=== PATIENT | male | born 2000 | race Caucasian/White ===

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

== ENCOUNTER 2021-01-20 13:03 | Emergency (ER) | payer MEDICAID, SELFPAY ==
[2021-01-20 13:58] VITALS: BP 147/81; PULSE 63; RESP 19; TEMP 36.8; O2SAT 99; BMI 21.9
[2021-01-20 16:24] VITALS: BP 145/81; PULSE 66; RESP 18; TEMP 36.9; O2SAT 98
--- NOTE | 2021-01-20 16:49 | ED_ITS ---
HPI - Extremity Problem General: Chief complaint: Extremity Problem,Nontraumatic Stated complaint: L foot toe Pain, (Big Toe) Time Seen by Provider: 01/20/21 16:25 Source: patient Mode of arrival: ambulatory Limitations: no limitations History of Present Illness: HPI Narrative: Patient is a 20-year-old male here for complaints of an ingrown toenail to his left great toe. Complaint: extremity pain Onset (ago): day(s) Pain Consistency: constant Location: left and toe Relieving factors: nothing Exacerbating factors: nothing Associated symptoms: Reports no associated symptoms Review of Systems Musc: Reports: extremity pain (L great toe) PFSH ED PFSH: Social History Smoking and tobacco status: never smoked Current occupation: [employer] Physical Exam Const: COMMON NORMALS: no acute distress, average body habitus, patient oriented x3, no limitations, healthy appearing, alert and well nourished Extremity: GENERAL: Yes normal exam except as noted OTHER: mild-mod ingrown toenail to lateral aspect of L great toe; erythema/swelling noted locally but no extension into toe/foot; no drainage/odor Neuro: COMMON NORMALS: patient oriented x3 SENSORIUM/ORIENTATION: Yes alert Course Vital Signs: Vital signs: Vital Signs Temperature 98.5 F 01/20/21 16:24 Pulse Rate 66 01/20/21 16:24 Respiratory Rate 18 01/20/21 16:24 Blood Pressure 145/81 01/20/21 16:24 Pulse Oximetry 98 01/20/21 16:24 MDM - Extremity (Nontraumatic) MDM Narrative: Medical decision making narrative: Will have CM get him set up with PCP. Recommend warm epson salt soaks and will place on abx. Discharge Plan Discharge Patient Disposition: Home Clinical Impression: Ingrowing left great toenail Condition: Stable Prescriptions: New Bactrim DS 800-160 mg tablet 1 tab PO BID 7 Days Qty: 14 RF: 0 No Action triamcinolone acetonide 0.1 % ointment 1 applic TOPICAL BID 7 Days Qty: 30 RF: 0 Discharge Orders: Discharge ED (Routine); Ordered 01/20/21 Ordered By: Syeda Ureña Patient Instructions: Ingrown Nail (ED) Activity Restrictions/Additional Instructions: As we discussed do warm water/Epson salt soaks as much as possible. Fill and begin antibiotics. I have placed information with case management to try to get you set up with a primary care provider. Coding Level of Care Code ED Incident Response Coordinator for Emeterio Levy
--- NOTE | 2021-01-21 08:45 | DCPLANNER ---
district manager primary care sales had message to speak with patient about getting established with a primary care physician. district manager primary care sales called phone number [phone], unable to speak with patient at this time, a voicemail was left for patient to return case assistant phone call.
== END 2021-01-20 17:01 | disposition home or self-care (01) ==
PROVIDERS: Emergency Provider Physician Assistant
DX: L60.0 Ingrowing nail (principal)
CPT/HCPCS: 99281

== ENCOUNTER → 2021-03-14 16:35 | Outpatient (BNVA) | payer MEDICAID, SELFPAY | PROVIDERS: Visit Provider Nurse Practitioner | DX: Z20.822 Contact with and (suspected) exposure to COVID-19 (principal) | CPT/HCPCS: 87426 ==

== ENCOUNTER → 2021-05-21 14:48 | Outpatient (BNVA) | payer MEDICAID, SELFPAY | PROVIDERS: Visit Provider Registered Nurse Neonatal Intensive Care | DX: S69.91XA Unspecified injury of right wrist, hand and finger(s), initial encounter (principal); X58.XXXA Exposure to other specified factors, initial encounter | CPT/HCPCS: 73110; 73130 ==

== ENCOUNTER 2021-05-26 17:32 | Emergency (ER) | payer MEDICAID, SELFPAY ==
[2021-05-26 17:38] VITALS: BP 130/79; PULSE 64; RESP 16; TEMP 36.8; O2SAT 100
--- NOTE | 2021-05-26 18:05 | ECG_ITS ---
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 Requested By: Kristian Adames Order Number: [id number] Melania MD: RUBA CARVAJAL Measurements Intervals [place] Rate: 59 P: 75 CT: 128 QRS: 81 QRSD: 90 T: 61 QT: 420 QTc: 417 Interpretive Statements SINUS BRADYCARDIA MINIMAL VOLTAGE CRITERIA FOR LVH, CONSIDER NORMAL VARIANT [MEETS CRITERIA IN ONE OF: R(aVL), S(V1), R(V5), R(V5/V6)+S(V1)] EARLY REPOLARIZATION [ST ELEVATION WITH NORMALLY INFLECTED T-WAVE] Compared to ECG 10/30/2019 23:11:28 Early repolarization now present ST (T wave) deviation no longer present Electronically Signed On 05-27-2021 20:12:33 SUPERVISOR COFFEE by RUBA CARVAJAL [email or web address]
--- NOTE | 2021-05-26 19:59 | CTR_ITS ---
PROCEDURE INFORMATION: Exam: CT Cervical Spine Without Contrast Exam date and time: 05/26/2021 7:59 PM Age: 21 years old Clinical indication: Injury or trauma; Blunt trauma; Injury details: Fall- hit head on wall. Denies loc. DURAN and pain in neck. C-collar in place TECHNIQUE: Imaging protocol: Computed tomography images of the cervical spine without contrast. Total images: 336 Radiation optimization: All CT scans at this facility use at least one of these dose optimization techniques: automated exposure control; mA and/or kV adjustment per patient size (includes targeted exams where dose is matched to clinical indication); or iterative reconstruction. COMPARISON: CT head wo con* [id number] 05/26/2021 8:19 PM RADIATION DOSE METRICS: Total DLP (mGy-cm): 453.43 FINDINGS: Bones/joints: No acute fracture. Normal alignment. Limbus vertebra C6 a normal anatomical variant. Discs/Spinal canal/Neural foramina: Intervertebral disc space heights preserved throughout. No significant disc protrusion. No severe spinal canal stenosis. No significant neural foraminal narrowing. Lungs: Lung apices are normal. Soft tissues: Unremarkable. CT/CT cervical spin wo con* [id number] IMPRESSION: No acute findings.
--- NOTE | 2021-05-26 19:59 | ED_ITS ---
HPI - Syncope General: Chief Complaint: Syncope Stated Complaint: NEAR SYNCOPE Time Seen by Provider: 05/26/21 19:59 History of Present Illness: HPI narrative: 21-year-old male patient comes in today with complaints of feeling lightheaded then losing control and balance and falling back and hitting his neck and head against the wall. Patient reports episode of nausea and vomiting after incident before recovery. Patient does report some pain to the back of his head and neck. Patient was evaluated by EMS and brought in with c-collar. Patient has had previous episodes of fainting/syncope over the last 2 years. Patient reports 1 in July 2019 in which he was seen in [place] emergency department and was cleared with no obvious abnormality. Patient then was seen in this ER in October 2019 for a similar episode. Review of the record indicated no significant abnormalities with lab, CT, or EKG. Patient reports last week he became faint at work but did not pass out completely. Patient appears well. Patient appears no acute distress. Patient denies any routine medication use. Patient denies any drug use or alcohol use Review of Systems General: Reports: 10 or more systems reviewed and unremarkable except in HPI and below Card: Reports: syncope [facility] ED PFSH: Social History Smoking and tobacco status: never smoked Current occupation: [employer] Physical Exam Const: COMMON NORMALS: no acute distress and patient oriented x3 GENERAL APPEARANCE: cooperative HENMT: COMMON NORMALS: normocephalic, TM's normal bilaterally and Normal external nose present HEAD & SCALP: normal to inspection and normocephalic NOSE: Normal external nose present TYMPANIC MEMBRANE: TM's normal bilaterally MOUTH: Normal oral and palatal mucosa present THROAT: posterior oropharynx normal Eye: GENERAL EYE: appearance normal, both eyes and all related structures Neck/C-Spine: COMMON NORMALS: full ROM Lymph: LYMPHATIC: no lymphadenopathy noted Chest: COMMONS NORMALS: normal inspection of the chest Resp: COMMON NORMALS: normal respiratory effort EFFORT & INSPECTION: Yes able to speak in complete sentences Cardio: COMMON NORMALS: regular rate and regular rhythm RATE: regular rate RHYTHM: regular rhythm GI: COMMON NORMALS: non-tender Back/Pelvis: COMMON NORMALS: thoracic and lumbar spine normal to inspection Extremity: COMMON NORMALS: normal to inspection Neuro: COMMON NORMALS: patient oriented x3 and moves all extremities Psych: COMMON NORMALS: mental status grossly normal and cooperative Skin: COMMON NORMALS: no rashes or lesions noted GENERAL SKIN EXAM: no rashes or lesions noted Course Vital Signs: Vital signs: Vital Signs Temperature 98.2 F 05/26/21 17:38 Pulse Rate 64 05/26/21 17:38 Respiratory Rate 16 05/26/21 17:38 Blood Pressure 130/79 05/26/21 17:38 Pulse Oximetry 100 05/26/21 17:38 MDM - Syncope MDM Narrative: Medical decision making narrative: 21-year-old male patient comes in today with complaints of passing out and hitting the back of his head against the wall. Patient reports that he has had 3 other episodes of syncope for the last 2 years. On exam patient appears well. Patient appears no acute distress. Lungs are clear to auscultation. Skin is warm and dry. Patient had full recovery on arrival to the ER. Differential diagnosis includes but not limited to vasovagal syncope, psychogenic syncope, hypotension. Laboratory values were unremarkable. CT of the head and neck were performed due to patient's injury when he hit the back of his head against the wall. No sign of injury or abnormality was noted. EKG showed sinus bradycardia. Reviewed exam with patient with recommendations for follow-up with primary care for further evaluation and treatment. No suspicion for serious illness was noted at this time. Case management will be consulted for PCP follow-up. Patient agreed to plan. Lab Data: Labs: Lab Results 05/26/21 05/26/21 20:40 20:40 WBC 6.4 10^3/uL 10^3/ uL (4.5-13.0) RBC 4.66 10^6/uL 10^6 /uL (4.1-5.3) Hgb 14.0 g/dL g/dL (11.7-16.6) Hct 40.6 % L % (42.0-52.0) MCV 87.1 fl fl (80-94) MCH 30.0 pg pg (28.0-34.0) MCHC 34.5 g/dL g/dL (30.0-36.0) RDW 11.8 % L % (12.1-15.1) Plt Count 197 10^3/cmm 10^3 /cmm (130-400) MPV 9.2 fL fL (7.4-10.4) Neut % (Auto) 75.7 % % Lymph % (Auto) 16.7 % % [place] % (Auto) 6.4 % % Eos % (Auto) 0.6 % % Baso % (Auto) 0.3 % % Neut # (Auto) 4.83 10^3/uL 10^3 /uL (1.8-8.0) Lymph # (Auto) 1.1 10^3/uL L 10^ 3/uL (1.5-6.5) [place] # (Auto) 0.4 10^3/uL 10^3/ uL (0.2-0.9) Eos # (Auto) 0.0 10^3/uL 10^3/ uL (0.0-0.8) Baso # (Auto) 0.0 10^3/uL 10^3/ uL (0.0-0.1) Nucleated RBC % (a uto) 0 % % Nucleated RBCs # 0.0 /100WBC /100W BC Sodium 139 mmol/L mmol/L (136-145) Potassium 4.4 mmol/L mmol/L (3.5-5.1) Chloride 104 mmol/L mmol/L (98-107) Carbon Dioxide 23 mmol/L mmol/L (22-29) Anion Gap 16.4 (5-19) BUN 11 mg/dL mg/dL (6-20) Creatinine 0.7 mg/dL mg/dL (0.7-1.2) GFR Calculation 143.8 mL/min H mL /min (90-130) Glucose 84 mg/dL mg/dL (65-115) Calculated Osmolal ity 287 mOsm/kg mOsm/ kg (285-295) Calcium 9.0 mg/dL mg/dL (8.5-10.5) Discharge Plan Discharge Patient Disposition: Home Clinical Impression: Syncope, non cardiac Head injury Qualifiers: Encounter type: initial encounter Qualified Code(s): S09.90XA - Unspecified injury of head, initial encounter Condition: Stable Discharge Orders: Discharge ED (Routine); Ordered 05/26/21 Ordered By: Kelechi Luna Discharge Diet: Usual diet Discharge Activity: Increase activity as tolerated Patient Instructions: Syncope (ED) Activity Restrictions/Additional Instructions: Home and rest. Drink plenty of water. Healthy diet and exercise. Follow-up with primary care for further evaluation and treatment. Return to the ER for new concerns or worsening symptoms. Stand Alone Forms: Work/School Release Coding Level of Care Code ED Wet Pour Mixer for Emeterio Fwd Exam Comprehensive
--- NOTE | 2021-05-26 19:59 | CTR_ITS ---
PROCEDURE INFORMATION: Exam: CT Head Without Contrast Exam date and time: 05/26/2021 7:59 PM Age: 21 years old Clinical indication: Injury or trauma; Blunt trauma (contusions or hematomas); Injury details: Fall- hit head on wall. Denies loc. DURAN and pain in neck. C-collar in place TECHNIQUE: Imaging protocol: Computed tomography of the head without contrast. Total images: 195 Radiation optimization: All CT scans at this facility use at least one of these dose optimization techniques: automated exposure control; mA and/or kV adjustment per patient size (includes targeted exams where dose is matched to clinical indication); or iterative reconstruction. COMPARISON: CT head wo con* [id number] 10/31/2019 12:31 AM RADIATION DOSE METRICS: Total DLP (mGy-cm): 801.54 FINDINGS: Brain: No evidence of active or acute intracranial pathologic process, hemorrhage, or trauma. No visible evidence of diffuse cerebral edema or generalized demyelination. No mass effect. No midline shift. Cerebral ventricles: No ventriculomegaly. Paranasal sinuses: Visualized sinuses are unremarkable. No fluid levels. Mastoid air cells: Visualized mastoid air cells are well aerated. Bones/joints: Unremarkable. No acute fracture. Soft tissues: Unremarkable. CT/CT head wo con* [id number] IMPRESSION: No evidence of active or acute intracranial pathologic process, hemorrhage, or trauma.
[2021-05-26 20:49] LABS: Basophils % 0.3 %; Eosinophils % 0.6 %; Hematocrit 40.6 % (42.0-52.0); Lymphocytes # 1.1 10^3/uL (1.5-6.5); Lymphocytes % 16.7 %; Mean Corpuscular HGB Conc 34.5 g/dL (30.0-36.0); Mean Corpuscular Volume 87.1 fl (80-94); Mean Platelet Volume 9.2 fL (7.4-10.4); Monocytes # 0.4 10^3/uL (0.2-0.9); Monocytes % 6.4 %; Neutrophils # 4.83 10^3/uL (1.8-8.0); Neutrophils % 75.7 %; Nucleated Red Blood Cells % 0 %; Platelet Count 197 10^3/cmm (130-400); Red Blood Count 4.66 10^6/uL (4.1-5.3); Red Cell Distribution Width 11.8 % (12.1-15.1); White Blood Count 6.4 10^3/uL (4.5-13.0)
[2021-05-26 21:29] LABS: Anion Gap 16.4 (5-19); Blood Urea Nitrogen 11 mg/dL (6-20); Carbon Dioxide 23 mmol/L (22-29); Chloride 104 mmol/L (98-107); Glomerular Filtration Rate 143.8 mL/min (90-130); Glucose 84 mg/dL (65-115); Osmolality Calculated 287 mOsm/kg (285-295); Potassium 4.4 mmol/L (3.5-5.1); Sodium 139 mmol/L (136-145)
[2021-05-26 21:30] VITALS: BP 133/69; PULSE 55; RESP 18; O2SAT 99
[2021-05-26] MEDS: ketorolac 30 mg/mL INJ IM (21:52)
[2021-05-26] MEDS: promethazine 25 mg Tablet PO (21:52)
== END 2021-05-26 21:57 | disposition home or self-care (01) ==
PROVIDERS: Emergency Provider Nurse Practitioner Family
DX: R55 Syncope and collapse (principal); S09.90XA Unspecified injury of head, initial encounter; W19.XXXA Unspecified fall, initial encounter
CPT/HCPCS: 70450; 72125; 80048; 85025; 93005; 96372; 99284; J1885; Q0169

== ENCOUNTER → 2021-06-19 08:06 | Outpatient (BNVA) | payer MEDICAID, SELFPAY | PROVIDERS: PCP Family Medicine Adult Medicine; Referring Provider Family Medicine Adult Medicine; Visit Provider Family Medicine Adult Medicine | DX: Z20.2 Contact with and (suspected) exposure to infections with a predominantly sexual mode of transmission (principal) | CPT/HCPCS: 87491; 87591 ==

== ENCOUNTER → 2021-07-23 09:50 | Outpatient (BNVA) | payer MEDICAID, SELFPAY | PROVIDERS: PCP Family Medicine Adult Medicine; Visit Provider Specialist | DX: R55 Syncope and collapse (principal); G43.711 Chronic migraine without aura, intractable, with status migrainosus | CPT/HCPCS: 99204; 99205 ==